=== PATIENT | female | born 1980 | race Two or more races ===

== ENCOUNTER → 2018-07-09 | Outpatient (CLI) | payer BC | END | disposition home or self-care (01) | LOC: CFH 08:17 | PROVIDERS: ATTEND Obstetrics & Gynecology | DX: Z12.31 Encounter for screening mammogram for malignant neoplasm of breast (principal) | CPT/HCPCS: 77067 ==

== ENCOUNTER 2018-07-22 14:15 | Outpatient (CLI) | payer BC | END 2018-08-02 09:57 | disposition home or self-care (01) | LOC: CFH 14:15 | PROVIDERS: ATTEND Obstetrics & Gynecology | DX: N64.89 Other specified disorders of breast (principal) | CPT/HCPCS: 76641; 77065; G0279; 88305; 88341; 88342; 88360 ==

== ENCOUNTER 2018-07-23 09:30 | Outpatient (CLI) | payer BC ==
[2018-07-23] MEDS ORDERED: LIDOCAINE 1%-EPI 1:100K, 20ML ONE (09:45)
[2018-07-23] MEDS ORDERED: LIDOCAINE 1%, 20ML ONE (09:45)
[2018-07-23] MEDS ORDERED: SODIUM BICARBONATE 4.0%, 5ML ONE (09:45)
== END 2018-08-02 15:04 | disposition home or self-care (01) ==
LOC: CFH 09:30
PROVIDERS: ATTEND Obstetrics & Gynecology
DX: N63.20 Unspecified lump in the left breast, unspecified quadrant (principal)
CPT/HCPCS: 19083; 77065; 88305; 88341; 88342; 88360; J3490; 19285

== ENCOUNTER 2018-09-12 14:51 | Day surgery (SDC) | payer BC ==
[2018-09-09 09:02] LABS: BASOPHILS # (AUTO) 0.05 x10^3/uL (0-0.1); BASOPHILS % (AUTO) 1 % (0-1); EOSINOPHILS % (AUTO) 2 % (1-7); LYMPHOCYTES % (AUTO) 31 % (22-44); MD NO; MEAN CORPUSCULAR HEMOGLOBIN 28.7 pg (27.0-34.8); MEAN CORPUSCULAR HGB CONC 33.4 g/dL (32.4-35.8); MEAN CORPUSCULAR VOLUME 85.8 fL (80-100); MEAN PLATELET VOLUME 9.6 fL (7.4-10.4); MONOCYTES % (AUTO) 7 % (2-9); NEUTROPHILS # (AUTO) 3.68 x10^3/uL (1.8-6.8); NEUTROPHILS % (AUTO) 60 % (42-75); PLATELET COUNT 313 x10^3/uL (130-400); RED BLOOD COUNT 4.78 x10^6/uL (3.82-5.3); RED CELL DISTRIBUTION WIDTH 14.6 % (9.6-15.2)
[~2018-09-12] VITALS: Ht 170.2 cm; Wt 93.0 kg
[~2018-09-12 14:51] MED LIST: BUPIVACAINE/PF-EPI 0.5% 1:200K ONE; ISOSULFAN BLUE 10 MG/ML, 5ML IV ONE; No meds per pt.
[2018-09-12] MEDS ORDERED: ONDANSETRON 2MG/ML, 2ML IVPush ONE (15:30)
[2018-09-12] MEDS ORDERED: ACETAMINOPHEN 500 MG TABLET PO ONE (15:30)
[2018-09-12] MEDS ORDERED: LACTATED RINGERS 1,000 ML IV SCH ×3 (15:30→21:30)
[2018-09-12] MEDS ORDERED: GABAPENTIN 300 MG CAPSULE PO ONE (15:30)
[2018-09-12] MEDS ORDERED: SCOPOLAMINE PATCH, 1.5MG PATCH.TD72 TD ONE (15:30)
[2018-09-12 15:41] VITALS: BP 135/87
[2018-09-12] MEDS ORDERED: FENTANYL PF 250 MCG/5ML ONE ×2 (16:14→18:20)
[2018-09-12] MEDS ORDERED: MIDAZOLAM 1 MG/ML, 2ML ONE (16:14)
[2018-09-12] MEDS ORDERED: ONDANSETRON 2MG/ML, 2ML ONE (16:16)
[2018-09-12] MEDS ORDERED: GLYCOPYRROLATE 0.2MG/1ML, 5ML ONE (16:16)
[2018-09-12] MEDS ORDERED: CEFAZOLIN 1,000 MG ONE (16:16)
[2018-09-12] MEDS ORDERED: ROCURONIUM 10MG/ML,5ML ONE (16:16)
[2018-09-12] MEDS ORDERED: NEOSTIGMINE 1 MG/ML, 10ML ONE (16:16)
[2018-09-12] MEDS ORDERED: DEXAMETHASONE 4 MG/ML, 1ML ONE (16:16)
[2018-09-12] MEDS ORDERED: PROPOFOL 10 MG/ML, 20ML ONE (16:16)
[2018-09-12] MEDS ORDERED: PROMETHAZINE 25 MG/ML, 1ML IM PRN ×2 (17:30)
[2018-09-12] MEDS ORDERED: PROMETHAZINE 25 MG/ML, 1ML IV PRN (17:30)
[2018-09-12] MEDS ORDERED: PROMETHAZINE 25 MG SUPP PR PRN (17:30)
[2018-09-12] MEDS ORDERED: LABETALOL 5MG/ML, 20ML IV PRN (17:30)
[2018-09-12] MEDS ORDERED: ONDANSETRON 2MG/ML, 2ML IV PRN (17:30)
[2018-09-12] MEDS ORDERED: ONDANSETRON ODT 8 MG PO PRN (17:30)
[2018-09-12] MEDS ORDERED: hydrALAzine 20 MG/ML, 1ML IV PRN (17:30)
[2018-09-12] MEDS ORDERED: PROMETHAZINE 12.5 MG SUPP PR PRN (17:30)
[2018-09-12] MEDS ORDERED: OXYcodone 5 MG/5 ML ORAL.SOL UDC PO PRN (17:30)
[2018-09-12] MEDS ORDERED: MORPHINE SULFATE 4 MG/ML, 1ML IVPush PRN ×2 (17:30→21:30)
[2018-09-12] MEDS ORDERED: MEPERIDINE/PF 25MG/0.5ML IVPush PRN (17:30)
[2018-09-12] MEDS ORDERED: HALOPERIDOL 5 MG/ML IV PRN (17:30)
[2018-09-12] MEDS ORDERED: HYDROmorphone 2 MG/ML, 1ML ONE (19:39)
[2018-09-12] MEDS ORDERED: OXYcodone 5 MG/5 ML ORAL.SOL UDC ONE (19:40)
[2018-09-12] MEDS ORDERED: FENTANYL PF 100 MCG/2ML ONE (19:42)
[2018-09-12] MEDS: FENTANYL PF 100 MCG/2ML IV PRN ×2 (19:43→20:06)
[2018-09-12] MEDS: HYDROmorphone 2 MG/ML, 1ML IVPush PRN ×2 (19:50→20:05)
[2018-09-12] MEDS ORDERED: HYDROcodone/APAP 7.5-325MG/15ML UDC PO PRN (21:30)
[2018-09-12] MEDS ORDERED: ONDANSETRON 2MG/ML, 2ML IVPush PRN (21:30)
== END 2018-09-12 23:17 | disposition home or self-care (01) ==
LOC: SDC 14:51 → EDSTATUS 16:00 → 4NOR 20:38 → RAD 23:17
PROVIDERS: ATTEND Surgery
DX: C50.212 Malignant neoplasm of upper-inner quadrant of left female breast (principal); R59.1 Generalized enlarged lymph nodes
CPT/HCPCS: 19301; 36415; 38525; 38792; 84703; 85025; 88305; 88307; 88329; 88333; A9541; C1729; J0690; J1100; J1170; J2250; J2405; J2704; J2710; J3010; J3490; G0378

== ENCOUNTER → 2018-12-11 | Outpatient (CLI) | payer BC ==
[~2018-12-11] MED LIST changes: -BUPIVACAINE/PF-EPI 0.5% 1:200K ONE; -ISOSULFAN BLUE 10 MG/ML, 5ML IV ONE
== END | disposition home or self-care (01) ==
LOC: ROC 11-19 11:36
PROVIDERS: ATTEND Radiology Radiation Oncology
DX: Z08 Encounter for follow-up examination after completed treatment for malignant neoplasm (principal); C50.212 Malignant neoplasm of upper-inner quadrant of left female breast
CPT/HCPCS: 99213; G0463

== ENCOUNTER → 2019-02-03 | Outpatient (CLI) | payer BC | END | disposition home or self-care (01) | LOC: CFH 13:15 | PROVIDERS: ATTEND Radiology Radiation Oncology | DX: C50.212 Malignant neoplasm of upper-inner quadrant of left female breast (principal); I25.10 Atherosclerotic heart disease of native coronary artery without angina pectoris | CPT/HCPCS: 77065; G0279 ==

== ENCOUNTER 2019-12-08 08:26 | Outpatient (CLI) | payer BC | END 2019-12-08 23:59 | disposition home or self-care (01) | LOC: ROC 08:26 | PROVIDERS: ATTEND Radiology Radiation Oncology | DX: C50.212 Malignant neoplasm of upper-inner quadrant of left female breast (principal) | CPT/HCPCS: 99213; G0463 ==

== ENCOUNTER → 2019-12-08 | Outpatient (CLI) | payer BC ==
[2019-12-08 15:36] LABS: MICROSCOPIC NOT IND
[2019-12-08 15:38] LABS: CULTURE INDICATED? NO
== END | disposition home or self-care (01) ==
LOC: CFH 14:38
PROVIDERS: ATTEND Radiology Radiation Oncology
DX: R30.0 Dysuria (principal); N39.0 Urinary tract infection, site not specified
CPT/HCPCS: 81003

== ENCOUNTER 2020-02-09 09:04 | Outpatient (CLI) | payer BC | END 2020-02-09 23:59 | disposition home or self-care (01) | LOC: CFH 09:04 | PROVIDERS: ATTEND Radiology Radiation Oncology | DX: Z12.31 Encounter for screening mammogram for malignant neoplasm of breast (principal) | CPT/HCPCS: 77063; 77067 ==

== ENCOUNTER → 2021-02-17 | Outpatient (CLI) | payer BC | END | disposition home or self-care (01) | LOC: CFH 08:51 | PROVIDERS: ATTEND Radiology Radiation Oncology | DX: Z12.31 Encounter for screening mammogram for malignant neoplasm of breast (principal) | CPT/HCPCS: 77063; 77067 ==